=== PATIENT | male | born 1995 | race Caucasian/White ===

== ENCOUNTER 2022-01-15 13:33 | Emergency (ER) | payer SELFPAY ==
[~2022-01-15] VITALS: Ht 170.2 cm; Wt 73.0 kg
[2022-01-15 14:41] LABS: BASOPHILS % 0.7 % (0.0-2.0); EOSINOPHILS % 0.8 % (0.0-5.0); HEMATOCRIT. 46.7 % (42.0-52.0); HEMOGLOBIN. 16.6 g/dL (14.0-18.0); LYMPHOCYTES % 15.1 % (20.0-50.0); MEAN CORPUSCULAR HEMOGLOBIN 29.7 pg (28.0-32.0); MEAN CORPUSCULAR VOLUME 83.5 fL (80.0-94.0); MEAN PLATELET VOLUME 7.6 fl (7.4-10.4); NEUTROPHILS % 75.4 % (40.0-76.0); PLATELET 489 x1000/uL (130-400); RED BLOOD CELL COUNT 5.58 mill/uL (4.7-6.1); RED CELL DISTRIBUTION WIDTH 13.2 % (11.6-14.6)
[2022-01-15 14:43] VITALS: BP 144/67
[2022-01-15 14:53] LABS: CHLORIDE 102 mEq/L (98-107)
[2022-01-15 15:00] LABS: ETHANOL BLOOD < 10 mg/dL
[2022-01-15] MEDS ORDERED: SODIUM CHLORIDE 0.9% 1,000 ML IV ONE ×2 (16:15→17:00)
[2022-01-15] MEDS ORDERED: LORAZEPAM 2MG/ML CPJ IV ONE (16:15)
[2022-01-15 17:48] LABS: CLARITY URINE CLOUDY (CLEAR); COLOR URINE DARK YELLOW (YELLOW); KETONES URINE 1+ (NEGATIVE); LEUKOCYTE ESTERASE URINE 1+ (NEGATIVE); NITRITE URINE NEGATIVE (NEGATIVE); OCCULT BLOOD URINE NEGATIVE (NEGATIVE); PH URINE 6.5 (4.5-8.0); PROTEIN URINE 4+ (NEGATIVE); SPECIFIC GRAVITY URINE 1.025 (1.005-1.030)
[2022-01-15 17:59] LABS: *AMPHETAMINES SCREEN URINE PRESUMTIVE POSITIVE (NEGATIVE); *BARBITURATES SCREEN URINE NEGATIVE (NEGATIVE); *BENZODIAZEPINES SCREEN URINE NEGATIVE (NEGATIVE); *COCAINE SCREEN URINE NEGATIVE (NEGATIVE); CANNABINOID URINE SCREEN NEGATIVE (NEGATIVE); METHADONE URINE SCREEN NEGATIVE (NEGATIVE); OPIATES URINE SCREEN NEGATIVE (NEGATIVE); PHENCYCLIDINE URINE SCREEN NEGATIVE (NEGATIVE)
[2022-01-15] MEDS ORDERED: NITR-87 MT (18:31)
== END 2022-01-15 19:02 | disposition home or self-care (01) ==
LOC: ER 13:33 → EDBD 13:33 → ER 19:02
DX: T43.621A Poisoning by amphetamines, accidental (unintentional), initial encounter (principal); N17.9 Acute kidney failure, unspecified; N39.0 Urinary tract infection, site not specified; R51.9 Headache, unspecified; Y92.9 Unspecified place or not applicable
CPT/HCPCS: 36415; 70450; 80053; 80305; 80320; 81003; 82962; 85025; 87086; 96361; 96374; 99284; J2060; J7030; G0480